=== PATIENT | male | born 1945 | race Two or more races ===

== ENCOUNTER 2017-11-26 07:39 | Outpatient (CLI) | payer OTHER | END 2017-11-26 15:48 | disposition home or self-care (01) | LOC: SONOGRAMA 07:39 → MAMO-SONO 07:45 → SONOGRAMA 15:48 | DX: R10.84 Generalized abdominal pain (principal); Z86.19 Personal history of other infectious and parasitic diseases; D69.6 Thrombocytopenia, unspecified ==

== ENCOUNTER 2017-12-10 10:36 | Outpatient (CLI) | payer OTHER | END 2017-12-10 17:46 | disposition home or self-care (01) | LOC: NUCLEAR 10:36 | DX: I20.1 Angina pectoris with documented spasm (principal) ==

== ENCOUNTER 2018-11-13 08:09 | Outpatient (CLI) | payer OTHER | END 2018-11-13 08:11 | disposition home or self-care (01) | LOC: SONOGRAMA 08:09 → MAMO-SONO 08:15 | DX: D69.0 Allergic purpura (principal) ==

== ENCOUNTER 2020-01-31 08:08 | Outpatient (CLI) | payer OTHER | END 2020-01-31 08:10 | disposition home or self-care (01) | LOC: SONOGRAMA 08:08 → MAMO-SONO 08:15 | DX: B18.2 Chronic viral hepatitis C (principal); D69.59 Other secondary thrombocytopenia ==

== ENCOUNTER 2021-11-29 08:56 | Outpatient (CLI) | payer OTHER | END 2021-11-29 09:02 | disposition home or self-care (01) | LOC: RAD 08:56 | DX: G72.9 Myopathy, unspecified (principal); M54.2 Cervicalgia; G54.4 Lumbosacral root disorders, not elsewhere classified ==

== ENCOUNTER 2025-05-01 11:45 | Outpatient (CLI) | payer OTHER | END 2025-05-01 11:53 | disposition home or self-care (01) | LOC: RAD 11:45 | PROVIDERS: ATTEND Family Medicine Adult Medicine | DX: G54.4 Lumbosacral root disorders, not elsewhere classified (principal); M62.830 Muscle spasm of back ==